=== PATIENT | female | born 1990 | race Caucasian/White ===

== ENCOUNTER 2018-01-09 16:23 | Outpatient (RCR) | payer BC ==
[~2018-01-09 16:23] MED LIST: APIX5TAB PO; DABI75CA4 PO
[2018-01-09 16:40] VITALS: BP 129/78
[2018-01-09 17:36] LABS: PLATELET COUNT, AUTOMATED 191 K/uL (150-450)
== END 2018-01-11 09:32 | disposition home or self-care (01) ==
LOC: ONC 16:23
PROVIDERS: ATTEND Internal Medicine Hematology
DX: I82.402 Acute embolism and thrombosis of unspecified deep veins of left lower extremity (principal)
CPT/HCPCS: 82040; 82247; 82310; 82374; 82435; 82565; 82947; 84075; 84132; 84155; 84295; 84439; 84443; 84450; 84460; 84520; 85025; 99212